=== PATIENT | male | born 1970 | race Caucasian/White ===

== ENCOUNTER 2019-11-18 13:10 | Day surgery (SDC) | payer MEDICAID ==
[~2019-11-18] VITALS: Ht 170.2 cm; Wt 86.0 kg
[2019-11-18] MEDS ORDERED: LACTATED RINGERS 1,000 ML IV SCH (13:42)
[2019-11-18] MEDS ORDERED: CHLORHEXIDINE 15 ML UDC MM STA (13:42)
[2019-11-18] MEDS ORDERED: LIDOCAINE-MPF 1%, 2ML INFIL STA (13:42)
[2019-11-18] MEDS ORDERED: FURO40TA6 PO (13:47)
[2019-11-18] MEDS ORDERED: ALBU18HF INH (13:52)
[2019-11-18] MEDS ORDERED: METO-290 PO (13:52)
[2019-11-18] MEDS ORDERED: LOSA100T14 PO (13:52)
[2019-11-18] MEDS ORDERED: HYDR50TA3 PO (13:52)
[2019-11-18] MEDS ORDERED: CLIN300C8 PO (13:52)
[2019-11-18] MEDS ORDERED: ERGO500018 PO (13:52)
[2019-11-18] MEDS ORDERED: INSU100I42 INJ (13:52)
[2019-11-18] MEDS ORDERED: INSU100I34 INJ (13:52)
[2019-11-18] MEDS ORDERED: ALBU18HF PO (13:52)
[2019-11-18 13:56] VITALS: BP 150/80
[2019-11-18] MEDS ORDERED: BUPIVACAINE/PF-EPI 0.5% 1:200K ONE (14:19)
[2019-11-18 14:51] LABS: ALANINE AMINOTRANSFERASE 75 U/L (12-78); ALBUMIN 3.2 g/dL (3.4-5.0); ANION GAP 8 mmol/L (5-15); CALCIUM 8.4 mg/dL (8.5-10.1); CHLORIDE 99 mmol/L (98-107); CREATININE 2.36 mg/dL (0.7-1.3)
[2019-11-18 14:53] LABS: ALKALINE PHOSPHATASE 165 U/L (45-117); BILIRUBIN,TOTAL 0.2 mg/dL (0.2-1.0); TOTAL PROTEIN 7.2 g/dL (6.4-8.2)
[2019-11-18] MEDS ORDERED: MIDAZOLAM 1 MG/ML, 2ML ONE (15:14)
[2019-11-18] MEDS ORDERED: FENTANYL PF 250 MCG/5ML ONE (15:15)
[2019-11-18] MEDS ORDERED: PROPOFOL 50 ML ONE (15:16)
[2019-11-18] MEDS ORDERED: INSULIN SINGLE DOSE, ER ONE ×2 (15:28→17:28)
[2019-11-18] MEDS ORDERED: ONDANSETRON 2MG/ML, 2ML ONE (15:46)
[2019-11-18] MEDS ORDERED: PROPOFOL 10 MG/ML, 20ML ONE (15:46)
[2019-11-18] MEDS ORDERED: CEFAZOLIN 1,000 MG ONE (15:46)
[2019-11-18] MEDS ORDERED: FENTANYL PF 100 MCG/2ML IV PRN (16:30)
[2019-11-18] MEDS ORDERED: OXYcodone 5 MG/5 ML ORAL.SOL UDC PO PRN (16:30)
[2019-11-18] MEDS ORDERED: DIAZEPAM 5 MG/ML, 2ML IVPush PRN (16:30)
[2019-11-18] MEDS ORDERED: PROMETHAZINE 25 MG/ML, 1ML IVPush PRN (16:30)
[2019-11-18] MEDS ORDERED: EPHEDRINE 50 MG/ML, 1ML IVPush PRN (16:30)
[2019-11-18] MEDS ORDERED: morphine SULFATE 10 MG/ML, 1ML IVPush PRN (16:30)
[2019-11-18] MEDS ORDERED: DIPHENHYDRAMINE 50 MG/ML, 1ML IVPush PRN (16:30)
[2019-11-18] MEDS ORDERED: ONDANSETRON 2MG/ML, 2ML IVPush PRN (16:30)
[2019-11-18] MEDS ORDERED: EPHEDRINE 50 MG/ML, 1ML IM PRN (16:30)
[2019-11-18] MEDS ORDERED: ACETAMINOPHEN 325 MG TABLET PO PRN (16:30)
[2019-11-18] MEDS ORDERED: INSULIN REGULAR 100 UNITS/ML, 3ML VIAL SQ-INSULIN ONE (17:30)
== END 2019-11-18 19:08 | disposition home or self-care (01) ==
LOC: OR 13:10
PROVIDERS: ATTEND Podiatrist Foot & Ankle Surgery
DX: M86.671 Other chronic osteomyelitis, right ankle and foot (principal); Z11.59 Encounter for screening for other viral diseases; E11.69 Type 2 diabetes mellitus with other specified complication; L03.031 Cellulitis of right toe; E11.65 Type 2 diabetes mellitus with hyperglycemia; E11.42 Type 2 diabetes mellitus with diabetic polyneuropathy; E11.621 Type 2 diabetes mellitus with foot ulcer; L97.516 Non-pressure chronic ulcer of other part of right foot with bone involvement without evidence of necrosis; E11.22 Type 2 diabetes mellitus with diabetic chronic kidney disease; I12.9 Hypertensive chronic kidney disease with stage 1 through stage 4 chronic kidney disease, or unspecified chronic kidney disease; N18.3 Chronic kidney disease, stage 3 (moderate); F17.210 Nicotine dependence, cigarettes, uncomplicated; Z79.899 Other long term (current) drug therapy; Z88.8 Allergy status to other drugs, medicaments and biological substances
CPT/HCPCS: 28825; 80053; 82962; 87070; 87075; 87077; 87186; 87205; 88305; J0690; J1815; J2250; J2405; J2704; J3010; U0001